=== PATIENT | male | born 1980 | race Hispanic/Latino ===

== ENCOUNTER 2020-12-11 16:29 | Emergency (ER) | payer BC, OTHER ==
[~2020-12-11] VITALS: Ht 165.1 cm; Wt 73.5 kg
[2020-12-11 20:30] VITALS: BP 103/78
== END 2020-12-11 20:36 | disposition home or self-care (01) ==
LOC: ER 18:01
DX: S29.012A Strain of muscle and tendon of back wall of thorax, initial encounter (principal); S29.011A Strain of muscle and tendon of front wall of thorax, initial encounter; R05 Cough
CPT/HCPCS: 71045; 99283